=== PATIENT | female | born 1990 | race Two or more races ===

== ENCOUNTER 2025-05-11 14:26 | Emergency (ER) | payer OTHER ==
[~2025-05-11] VITALS: Ht 149.9 cm; Wt 54.4 kg
[2025-05-11] MEDS ORDERED: FAMOTIDINE/PF 20 MG/2 ML VIAL IV ONE (16:15)
[2025-05-11] MEDS ORDERED: 0.9 % SODIUM CHLORIDE 500 ML IV ONE (16:15)
[2025-05-11] MEDS ORDERED: ONDANSETRON HCL 2 MG/ML VIAL IV ONE (16:15)
[2025-05-11] MEDS ORDERED: ONDANSETRON HCL 2 MG/ML VIAL ONE (16:28)
[2025-05-11] MEDS ORDERED: FAMOTIDINE/PF 20 MG/2 ML VIAL ONE (16:29)
[2025-05-11 18:10] LABS: BASO % 0.5 % (0.1-1.2); EOS # 0.35 (0.04-0.54); EOS % 2.9 % (0.7-7.0); LYMPH # 1.71 (1.18-3.74); LYMPH % 14.0 % (19.3-53.1); MEAN PLATELET VOLUME 12.30 fl (9.4-12.4); MONO # 1.15 (0.24-0.82); MONO % 9.4 % (4.7-12.5); NEUT # 8.91 (1.56-6.13); NEUT % 72.9 % (34.0-71.1); RED CELL DISTRIBUTION WIDTH 13.2 % (11.6-14.4)
[2025-05-11 18:25] LABS: URINE APPEARANCE Clear; URINE BILIRRUBIN Negative (NEGATIVE); URINE BLOOD Negative; URINE COLOR Yellow; URINE GLUCOSE Negative (NEGATIVE); URINE LEUKOCYTE Trace; URINE NITRATE Negative; URINE PROTEIN Negative (NEGATIVE); URINE UROBILINOGEN 1.0 E.U./dl
[2025-05-11 18:28] LABS: URINE BACTERIA 167.9 uL (0.0-1933); URINE EPITHELIAL CELLS 41.8 uL (0.0-38.8); URINE RBC 6.8 uL (0.0-20.8); URINE WBC 18.9 uL (0.0-23.2)
[2025-05-11 18:31] LABS: URINE CAST 0.29 uL (0.0-1.40); URINE KETONE >=160 (NEGATIVE)
[2025-05-11 19:08] LABS: ALT/SGPT 18.0 U/L (12-78); AST/SGOT 10.0 U/L (15-37); BILIRUBIN TOTAL 0.47 mg/dL (0.3-1.2); BUN CREA RATIO 13.0 (7.0-25.0); CREATININE SERUM 0.6 mg/dL (0.55-1.02); GFR 114.43; GLOBULINA 4.0 G/DL (2.4-3.5); GLUCOSE FASTING 82.0 mg/dL (65-100); OSMOLALITY SERUM 271.0 MOSM/KG (275-295)
[2025-05-11 19:30] LABS: HCG QUANTITATIVE 90592.0 mUI/mL (1-3)
[2025-05-11] MEDS ORDERED: PEPCID AC20 MG PO (20:27)
[2025-05-11] MEDS ORDERED: ONDANSETRON ODT8 MG SL (20:27)
== END 2025-05-11 21:27 ==
LOC: ER 17:52
PROVIDERS: General Practice
DX: O21.0 Mild hyperemesis gravidarum (principal); O26.899 Other specified pregnancy related conditions, unspecified trimester; R10.2 Pelvic and perineal pain; Z3A.01 Less than 8 weeks gestation of pregnancy